=== PATIENT | male | born 1970 | race Two or more races ===

== ENCOUNTER 2019-03-05 16:51 | Emergency (ER) | payer SELFPAY ==
[~2019-03-05] VITALS: Ht 172.7 cm; Wt 85.0 kg
[2019-03-05 17:16] VITALS: BP 141/72
== END 2019-03-05 18:55 | disposition home or self-care (01) ==
LOC: ED 18:40
DX: S39.012A Strain of muscle, fascia and tendon of lower back, initial encounter (principal); X58.XXXA Exposure to other specified factors, initial encounter; Y93.89 Activity, other specified; Y92.89 Other specified places as the place of occurrence of the external cause; Y99.8 Other external cause status
CPT/HCPCS: 99281